=== PATIENT | female | born 1990 ===

== ENCOUNTER 2017-11-09 15:02 | Inpatient (IN) | payer BC ==
[2017-11-09] MEDS ORDERED: Tranexamic Acid 1,000 MG in Sodium Chloride 0.9% 100 ML IV PRN (15:45)
[2017-11-09] MEDS ORDERED: Sodium Chloride 0.9% 10 ML Syringe FLUSH PRN (15:45)
[2017-11-09] MEDS ORDERED: Nalbuphine 10 MG/1 ML Vial IVPUSH PRN (15:45)
[2017-11-09] MEDS ORDERED: Methylergonovine 0.2 MG/1 ML Amp IM PRN (15:45)
[2017-11-09] MEDS ORDERED: Misoprostol 200 MCG Tab PO PRN (15:45)
[2017-11-09] MEDS ORDERED: Sodium Chloride 0.9% 2.5 ML Syringe FLUSH PRN (15:45)
[2017-11-09] MEDS ORDERED: Carboprost Tromethamine 250 MCG/1 ML Amp IM PRN (15:45)
[2017-11-09] MEDS ORDERED: Oxytocin/0.9 % Sodium Chloride 30 UNIT/500 ML BAG IV SCH ×2 (15:45→20:15)
[2017-11-09] MEDS ORDERED: Lidocaine 1% 50 ML MDV INJECT PRN (15:45)
[2017-11-09] MEDS: Lactated Ringers 1,000 ML IV SCH ×2 (16:12→16:59)
--- NOTE | 2017-11-09 16:28 | PCM.LDHP ---
L&D History of Present Illness - General Date of Service: 11/09/17 Admit Problem/Dx: Patient Status Order with Admit Dx/Problem 11/09/17 15:07 Patient Status [ADT] Routine 11/09/17 15:45 Patient Status [ADT] Routine Admission Diagnosis/Problem Admission Diagnosis/Problem 11/09/17 16:22 26yo EDC 11/08/2017 40 1/7wks comes in active labor, )+, RI, GBS neg Source of Information: Patient History Limitations: Reports: No Limitations - History of Present Illness Improves with: Reports: None Worsens with: Reports: None Associated Symptoms: Reports: N - Related Data Allergies/Adverse Reactions: Allergies Allergy/AdvReac Type Severity Reaction Status Date / Time No Known Allergies Allergy Verified 11/09/17 15:06 Home Medications: Home Meds Vit No.124/Iron/FA [ Vitamin Tablet] 1 each PO DAILY 11/09/17 [ History] Past Medical History - Past Health History Medical/Surgical History: Denies Medical/Surgical History Social & Family History - Family History Family Medical History: Noncontributory - Tobacco Use Smoking Status *Q: Never Smoker Second Hand Smoke Exposure: No - Recreational Drug Use Recreational Drug Use: No H&P Review of Systems - Review of Systems: Review Of Systems: See Below General: Reports: No Symptoms HEENT: Reports: No Symptoms Pulmonary: Reports: No Symptoms Cardiovascular: Reports: No Symptoms Gastrointestinal: Reports: No Symptoms Genitourinary: Reports: No Symptoms Musculoskeletal: Reports: No Symptoms Skin: Reports: No Symptoms Psychiatric: Reports: No Symptoms Neurological: Reports: No Symptoms Hematologic/Lymphatic: Reports: No Symptoms Immunologic: Reports: No Symptoms L&D Exam - Exam Exam: See Below - Vital Signs Weight: 91.172 kg - OB Specific Contraction Intensity: Moderate to Strong Movement: Active Heart Tones: Present Heart Rate (FHR) Variability: Moderate (6-25 bmp) Presentation: Vertex - Orosco Score Orosco Score Cervix Position: Anterior Orosco Score Consistency: Soft Orosco Score Effacement: >80% Orosco Score Dilation: > 5 cm Orosco Score Infant's Station: -1 ,0 Orosco Score Total: 12 - Exam General: Alert, Oriented HEENT: Hearing Intact, Nares Patent Lungs: Clear to Auscultation, Normal Respiratory Effort Cardiovascular: Regular Rate, Regular Rhythm GI/Abdominal Exam: Soft, Non-Tender, No Distention, No Mass, Pelvis Stable Rectal Exam: Deferred Genitourinary: Normal external exam, Normal bimanual exam, Cervical dilitation Back Exam: Full Range of Motion Extremities: Normal Range of Motion, Non-Tender, No Pedal Edema, Normal Capillary Refill Skin: Warm, Dry, Intact Neurological: Reflexes Equal Bilateral, Normal Gait, Normal Speech, Normal Tone Psychiatric: Alert, Normal Affect, Normal Mood - Patient Data Lab Results Last 24 hrs: Laboratory Results - last 24 hr 11/09/17 Range/Units 15:55 WBC 18.26 H (4.0-11.0) K/uL RBC 4.55 (4.30-5.90) M/uL Hgb 13.2 (12.0-16.0) g/dL Hct 38.7 (36.0-46.0) % MCV 85.1 (80.0-98.0) fL MCH 29.0 (27.0-32.0) pg MCHC 34.1 (31.0-37.0) g/dL RDW Std Deviation 51.1 (28.0-62.0) fl RDW Coeff of Liset 17 H (11.0-15.0) % Plt Count 242 (150-400) K/uL MPV 10.70 (7.40-12.00) fL Nucleated RBC % 0.0 /100WBC Nucleated RBCs # 0 K/uL Result Diagrams: 11/09/17 15:55 - Problem List (1) Supervision of normal IUP (intrauterine ) in primigravida SNOMED Code(s): 44248815, 183934638, 440108179 ICD Code: Z34.00 - ENCNTR FOR SUPRVSN OF NORMAL FIRST , UNSP TRIMESTER Status: Acute Priority: High Current Visit: Yes Qualifiers: Trimester: third trimester Qualified Code(s): Z34.03 - Encounter for supervision of normal first , third trimester Problem List Initiated/Reviewed/Updated: Yes Orders Last 24hrs: Active Orders 24 hr Category Date Time Status Patient Status [ADT] Routine ADT 11/09/17 15:45 Active Heart Tones [RC] CONTINUOUS Care 11/09/17 15:45 Active Non Stress Test [RC] PER UNIT ROUTINE Care 11/09/17 15:07 Active Non Stress Test [RC] PER UNIT ROUTINE Care 11/09/17 15:45 Active May Shower [RC] ASDIRECTED Care 11/09/17 15:45 Active Notify Provider [RC] PRN Care 11/09/17 15:45 Active Up ad Yolanda [RC] ASDIRECTED Care 11/09/17 15:07 Active Vaginal Exam [RC] Click to Edit Care 11/09/17 15:07 Active Vital Signs [RC] PER UNIT ROUTINE Care 11/09/17 15:07 Active Vital Signs [RC] PER UNIT ROUTINE Care 11/09/17 15:45 Active Clear Liquid Diet [DIET] Diet 11/09/17 Dinner Active TYPE AND SCREEN [BBK] Routine Lab 11/09/17 15:55 Received Carboprost Tromethamine [Hemabate DS] Med 11/09/17 15:45 Active 250 mcg IM ASDIRECTED PRN Lactated Ringers [Ringers, Lactated] 1,000 ml Med 11/09/17 15:45 Active IV ASDIRECTED Lidocaine 1% [Xylocaine 1%] Med 11/09/17 15:45 Active 50 ml INJECT .ONCE PRN Methylergonovine [Methergine] Med 11/09/17 15:45 Active 0.2 mg IM ASDIRECTED PRN Misoprostol [Cytotec] Med 11/09/17 15:45 Active 200 mcg PO .ONCE PRN Nalbuphine [Nubain] Med 11/09/17 15:45 Active 10 mg IVPUSH Q1H PRN Oxytocin/0.9 % Sodium Chloride [Oxytocin 30 Unit/500 ML Med 11/09/17 15:45 Active -NS] 30 unit in 500 ml IV TITRATE Sodium Chloride 0.9% [Saline Flush] Med 11/09/17 15:45 Active 10 ml FLUSH ASDIRECTED PRN Sodium Chloride 0.9% [Saline Flush] Med 11/09/17 15:45 Active 2.5 ml FLUSH ASDIRECTED PRN Tranexamic Acid [Cyklokapron] 1,000 mg Med 11/09/17 15:45 Active Sodium Chloride 0.9% [Normal Saline] 100 ml IV ONETIME Scalp Electrode [WOMSER] Per Unit Routine Oth 11/09/17 15:45 Ordered Peripheral IV Insertion Adult [OM.PC] Routine Oth 11/09/17 15:45 Ordered Resuscitation Status Routine Resus Stat 11/09/17 15:06 Ordered Medication Orders Carboprost Tromethamine (Hemabate Ds) 250 mcg IM ASDIRECTED PRN PRN Reason: Post Hemorrhage Lactated Ringer's (Ringers, Lactated) 1,000 mls @ 150 mls/hr IV ASDIRECTED VITALY Last Admin: 11/09/17 16:12 Dose: 150 mls/hr Oxytocin/Sodium Chloride (Oxytocin 30 Unit/500 Ml-Ns) 30 unit in 500 mls @ 999 mls/hr IV TITRATE VITALY Tranexamic Acid 1,000 mg/ (Sodium Chloride) 110 mls @ 660 mls/hr IV ONETIME PRN PRN Reason: Bleeding Lidocaine HCl (Xylocaine 1%) 50 ml INJECT .ONCE PRN PRN Reason: Laceration repair Methylergonovine Maleate (Methergine) 0.2 mg IM ASDIRECTED PRN PRN Reason: Post Hemorrhage Misoprostol (Cytotec) 200 mcg PO .ONCE PRN PRN Reason: Post Hemorrhage Nalbuphine HCl (Nubain) 10 mg IVPUSH Q1H PRN PRN Reason: Pain (severe 7-10) Sodium Chloride (Saline Flush) 10 ml FLUSH ASDIRECTED PRN PRN Reason: Keep Vein Open Sodium Chloride (Saline Flush) 2.5 ml FLUSH ASDIRECTED PRN PRN Reason: Keep Vein Open Assessment/Plan Comment:: Labor A: 26yo EDC 11/08/2017 40 1/7wks comes in active labor, )+, RI, GBS neg, Hx of HSV P: Admit, Exam noted no HSV rash noted, epidural prn, anticipated , Dr Jim updated on pt status.
[2017-11-09] MEDS ORDERED: Ondansetron 4 MG/2 ML SDV IVPUSH PRN (16:29)
--- NOTE | 2017-11-09 17:05 | PCM.PREANE ---
Preanesthetic Assessment - Anesthesia/Transfusion/Family Hx Anesthesia History: No Prior Anesthesia Family History of Anesthesia Reaction: No Transfusion History: No Prior Transfusion(s) - Review of Systems General: No Symptoms Pulmonary: No Symptoms Cardiovascular: No Symptoms Gastrointestinal: No Symptoms Neurological: No Symptoms Other: Reports: None (Denies any bleeding or clotting problems) - Physical Assessment Height: 1.63 m Weight: 91.172 kg ASA Class: 2 Mental Status: Alert & Oriented x3 Airway Class: Mallampati = 2 Dentition: Reports: Normal Dentition ROM/Head Extension: Full - Lab Values: Laboratory Last Values WBC 18.26 K/uL (4.0-11.0) H 11/09/17 15:55 RBC 4.55 M/uL (4.30-5.90) 11/09/17 15:55 Hgb 13.2 g/dL (12.0-16.0) 11/09/17 15:55 Hct 38.7 % (36.0-46.0) 11/09/17 15:55 MCV 85.1 fL (80.0-98.0) 11/09/17 15:55 MCH 29.0 pg (27.0-32.0) 11/09/17 15:55 MCHC 34.1 g/dL (31.0-37.0) 11/09/17 15:55 RDW Std Deviation 51.1 fl (28.0-62.0) 11/09/17 15:55 RDW Coeff of Liset 17 % (11.0-15.0) H 11/09/17 15:55 Plt Count 242 K/uL (150-400) 11/09/17 15:55 MPV 10.70 fL (7.40-12.00) 11/09/17 15:55 Nucleated RBC % 0.0 /100WBC 11/09/17 15:55 Nucleated RBCs # 0 K/uL 11/09/17 15:55 - Allergies Allergies/Adverse Reactions: Allergies Allergy/AdvReac Type Severity Reaction Status Date / Time No Known Allergies Allergy Verified 11/09/17 15:06 - Acknowledgements Anesthesia Type Planned: Epidural Pt an Appropriate Candidate for the Planned Anesthesia: Yes Alternatives and Risks of Anesthesia Discussed w Pt/Guardian: Yes Pt/Guardian Understands and Agrees with Anesthesia Plan: Yes PreAnesthesia Questionnaire - Past Health History Medical/Surgical History: Denies Medical/Surgical History (Denies any medical problems) - SUBSTANCE USE Smoking Status *Q: Never Smoker Second Hand Smoke Exposure: No Recreational Drug Use History: No - HOME MEDS Home Medications: Home Meds Vit No.124/Iron/FA [ Vitamin Tablet] 1 each PO DAILY 11/09/17 [ History] - CURRENT (IN HOUSE) MEDS Current Meds: Current Medications Carboprost Tromethamine (Hemabate Ds) 250 mcg IM ASDIRECTED PRN PRN Reason: Post Hemorrhage Lactated Ringer's (Ringers, Lactated) 1,000 mls @ 150 mls/hr IV ASDIRECTED VITALY Last Admin: 11/09/17 16:59 Dose: 150 mls/hr Oxytocin/Sodium Chloride (Oxytocin 30 Unit/500 Ml-Ns) 30 unit in 500 mls @ 999 mls/hr IV TITRATE VTIALY Tranexamic Acid 1,000 mg/ (Sodium Chloride) 110 mls @ 660 mls/hr IV ONETIME PRN PRN Reason: Bleeding Lidocaine HCl (Xylocaine 1%) 50 ml INJECT .ONCE PRN PRN Reason: Laceration repair Methylergonovine Maleate (Methergine) 0.2 mg IM ASDIRECTED PRN PRN Reason: Post Hemorrhage Misoprostol (Cytotec) 200 mcg PO .ONCE PRN PRN Reason: Post Hemorrhage Nalbuphine HCl (Nubain) 10 mg IVPUSH Q1H PRN PRN Reason: Pain (severe 7-10) Ondansetron HCl (Zofran) 4 mg IVPUSH Q4H PRN PRN Reason: Nausea Sodium Chloride (Saline Flush) 10 ml FLUSH ASDIRECTED PRN PRN Reason: Keep Vein Open Sodium Chloride (Saline Flush) 2.5 ml FLUSH ASDIRECTED PRN PRN Reason: Keep Vein Open Discontinued Medications Fentanyl/Bupivacaine HCl (Ayombdar-Mwwgr-Xt 2 Mcg/Ml-0.125%) Confirm Administered Dose 100 mls @ as directed ALFREDO HERNÁNDEZ-MED ONE Stop: 11/09/17 16:28
[2017-11-10] MEDS ORDERED: Bupivacaine 0.5% 10 ML SDV ONE (02:17)
[2017-11-10] MEDS ORDERED: Morphine PF 1 MG/ML Amp ONE (02:26)
[2017-11-10] MEDS ORDERED: Ondansetron 4 MG/2 ML SDV ONE (02:29)
[2017-11-10] MEDS ORDERED: Oxytocin 10 Units/1 ML SDV ONE (02:29)
[2017-11-10] MEDS ORDERED: ceFAZolin/Dextrose,Iso-Osmotic 2 GM/50 ML Duplex Bag IV ONE (02:31)
[2017-11-10] MEDS ORDERED: Lanolin 100% Cream 7 GM Tube TOP PRN (03:35)
[2017-11-10] MEDS ORDERED: diphenhydrAMINE 50 MG/ML SDV IVPUSH PRN (03:35)
[2017-11-10] MEDS ORDERED: Acetaminophen/oxyCODONE 325-5 MG Tab PO PRN ×2 (03:35)
[2017-11-10] MEDS ORDERED: Bisacodyl 10 MG Supp RECTAL PRN (03:35)
[2017-11-10] MEDS ORDERED: Ondansetron 4 MG/2 ML SDV IVPUSH PRN (03:35)
[2017-11-10] MEDS ORDERED: Octyl 2-Cyanoacrylate 1 Tube ONE (03:35)
--- NOTE | 2017-11-10 03:39 | PCM.OPNOTE ---
- General Post-Op/Procedure Note Date of Surgery/Procedure: 11/10/17 Operative Procedure(s): Primary C/Section Pre Op Diagnosis: IUP term Failar to preogress Post-Op Diagnosis: Same Anesthesia Technique: Epidural Primary Surgeon: Amos Jim Administrative Medical Director: Maty Gresham EBL in mLs: 700 Complications: None Condition: Good
[2017-11-10] MEDS ORDERED: Lactated Ringers 1,000 ML IV SCH (03:45)
[2017-11-10] MEDS ORDERED: Nalbuphine 10 MG/1 ML Vial IVPUSH PRN (04:00)
[2017-11-10] MEDS ORDERED: fentaNYL 100 MCG/2 ML SDV IVPUSH PRN (04:00)
--- NOTE | 2017-11-10 04:02 | PCM.POSTAN ---
POST ANESTHESIA ASSESSMENT - MENTAL STATUS Mental Status: Alert, Oriented - RESPIRATORY Respiratory Status: Respiratory Rate WNL, Airway Patent, O2 Saturation Stable - CARDIOVASCULAR CV Status: Pulse Rate WNL, Blood Pressure Stable - GASTROINTESTINAL GI Status: No Symptoms - POST OP HYDRATION Hydration Status: Adequate & Stable
[2017-11-10] MEDS: Ketorolac 30 MG/ML SDV IVPUSH SCH ×4 (04:07→22:02)
--- NOTE | 2017-11-10 04:24 | OR ---
SURGEON: Amos Jim MD DATE OF PROCEDURE: 11/10/2017 PREOPERATIVE DIAGNOSES: 1. Intrauterine at term. 2. Failure to progress. PROCEDURE PERFORMED: Primary low transverse section. GRILL ATTENDANT: Maty Gresham CNM ANESTHESIA: Epidural, Dayanara Rich and Dr. Moreno. ESTIMATED BLOOD LOSS: 700 mL. COMPLICATIONS: None. SUPERVISOR FINISHING DEPARTMENT: Simran Branch M.D. FINDING: Male fetus. score reported to be 8 and 9. The weight is not available. INDICATION FOR SURGERY: This is a 26-year-old patient, primigravida, admitted in active labor. She is followed primarily by our nurse collaborative physician, and she is admitted at 4 cm, she progressed into 5 cm, and then she had epidural anesthesia for labor analgesia, and she had an artificial rupture of the membrane. The patient continued to progress. She became complete-complete and 0 to +1 station, and she pushed for 2 hours without any progress, and I was consulted to evaluate the patient, and when I evaluated the patient, she was complete-complete, vertex, and 0 to plus station. I attempted one small attempt of vacuum to do vacuum extraction, but it was unsuccessful, and it was felt at this time that it is safer for the patient to do primary low transverse section, so we proceeded to the section after consenting the patient. PROCEDURE IN DETAIL: The patient was brought to the OR, properly identified, and after adequate level of epidural anesthesia, with a [place] catheter in the bladder, the patient was prepped and draped in sterile fashion as usual. Low transverse Pfannenstiel skin incision done. Quique fascia and rectus fascia were opened in the direction of the incision. The 2 recti muscles were , and the peritoneal cavity was entered. Bladder flap was raised in the usual manner pushing the bladder away from the lower uterine segment and then low transverse uterine incision was done extending manually with the hand. Fetus was in a vertex position, delivered without any problem, and fetus cried immediately, handed to Dr. Branch who was present at the time of the section for resuscitation. The score later on reported to be 8 and 9. The placenta delivered spontaneous, complete, and intact and repair of the lower uterine segment was done with 2-0 Vicryl continuous interlocking in 2 layers. Reperitonealization done with 2-0 Vicryl continuous and then the peritoneal cavity evacuated completely from all blood and blood clot and closed with 3-0 Vicryl continuous. The rectus fascia was closed with #1 PDS double strand continuous and Quique fascia with 3-0 Vicryl continuous, and the skin closed with 3-0 Vicryl on a Vinod needle in a subcuticular fashion and Dermabond. Instrument and sponge count were correct. The patient tolerated the procedure well, went to recovery room in stable general condition. YOSELYN / ROMELIA /[id number]
[2017-11-10] MEDS: Docusate Sodium 100 MG Cap PO SCH ×2 (09:38→22:03)
--- NOTE | 2017-11-10 14:27 | PCM48HPAN ---
Post Anesthesia Note - EVALUATION WITHIN 48HRS OF ANESTHETIC Vital Signs in Normal Range: Yes Patient Participated in Evaluation: Yes Respiratory Function Stable: Yes Airway Patent: Yes Cardiovascular Function Stable: Yes Hydration Status Stable: Yes Pain Control Satisfactory: Yes Nausea and Vomiting Control Satisfactory: Yes Mental Status Recovered: Yes Resp Rate: 16 - COMMENTS/OBSERVATIONS Free Text/Narrative:: Denies any complaints and doing well.
[2017-11-11] MEDS: Ketorolac 30 MG/ML SDV IVPUSH SCH (04:00)
--- NOTE | 2017-11-11 08:56 | PCM.DCSUM1 ---
Discharge Summary - Hospital Course Free Text/Narrative:: Discharge home with if pain management effective. Follow up in 10 days for incision check and then in 6 weeks for post . Come sooner if needed. - Discharge Data Discharge Date: 11/11/17 Discharge Disposition: Admitted As Inpatient 66 Condition: Good - Discharge Diagnosis/Problem(s) (1) Supervision of normal IUP (intrauterine ) in primigravida SNOMED Code(s): 27172424, 420092132, 619785589 ICD Code: Z34.00 - ENCNTR FOR SUPRVSN OF NORMAL FIRST , UNSP TRIMESTER Status: Acute Priority: High Current Visit: Yes Qualifiers: Trimester: third trimester Qualified Code(s): Z34.03 - Encounter for supervision of normal first , third trimester (2) delivery with vacuum assistance, delivered, current hospitalization SNOMED Code(s): 702564197 ICD Code: O66.5 - ATTEMPTED APPLICATION OF VACUUM EXTRACTOR AND FORCEPS Status: Acute Priority: High Current Visit: Yes - Patient Summary/Data Operative Procedure(s) Performed: Primary C/Section - Patient Instructions Diet: Usual Diet as Tolerated Activity: As Tolerated, No Lifting Over 25 Pounds, No Strenuous Activities, Rest and Relax Today Driving: May Drive Today Showering/Bathing: May Shower Notify Provider of: Fever, Increased Pain, Swelling and Redness, Drainage, Nausea and/or Vomiting Other/Special Instructions: Discharge home with infant if pain management effective. Follow up in 10 days for incision check and then in 6 weeks for post . Come sooner if needed. - Discharge Plan Home Medications: Home Meds Vit No.124/Iron/FA [ Vitamin Tablet] 1 each PO DAILY 11/09/17 [ History] - General Info Date of Service: 11/11/17 Admission Dx/Problem (Free Text: Patient Status Order with Admit Dx/Problem 11/09/17 15:07 Patient Status [ADT] Routine 11/09/17 15:45 Patient Status [ADT] Routine Admission Diagnosis/Problem Admission Diagnosis/Problem 11/09/17 16:22 26yo EDC 11/08/2017 40 1/7wks comes in active labor, )+, RI, GBS neg Functional Status: Reports: Pain Controlled, Tolerating Diet, Ambulating, Urinating - Review of Systems General: Reports: No Symptoms HEENT: Reports: No Symptoms Pulmonary: Reports: No Symptoms Cardiovascular: Reports: No Symptoms Gastrointestinal: Reports: No Symptoms Genitourinary: Reports: No Symptoms Musculoskeletal: Reports: No Symptoms Skin: Reports: No Symptoms Neurological: Reports: No Symptoms Psychiatric: Reports: No Symptoms - Patient Data Vitals - Most Recent: Last Vital Signs Temp 36.4 C 11/11/17 08:04 Pulse 106 H 11/11/17 08:04 Resp 16 11/11/17 08:04 BP 114/59 L 11/11/17 08:04 Pulse Ox 98 11/11/17 08:04 Weight - Most Recent: 91.172 kg I&O - Last 24 hours: Intake & Output 11/10/17 11/11/17 11/11/17 22:59 06:59 14:59 Intake Total 1800 Output Total 2950 Balance -1150 Lab Results - Last 24 hrs: Laboratory Results - last 24 hr 11/11/17 Range/Units 04:50 Hgb 9.9 L (12.0-16.0) g/dL Hct 29.6 L (36.0-46.0) % Med Orders - Current: Current Medications Bisacodyl (Dulcolax) 10 mg RECTAL .ONCE PRN PRN Reason: Constipation Carboprost Tromethamine (Hemabate Ds) 250 mcg IM ASDIRECTED PRN PRN Reason: Post Hemorrhage Diphenhydramine HCl (Benadryl) 25 mg IVPUSH Q6H PRN PRN Reason: Itching or Nausea Docusate Sodium (Colace) 100 mg PO BID VITALY Last Admin: 11/10/17 22:03 Dose: 100 mg Emollient Ointment (Lansinoh Hpa) 0 gm TOP ASDIRECTED PRN PRN Reason: Sore Nipples Last Admin: 11/10/17 09:45 Dose: 7 gm Oxytocin/Sodium Chloride (Oxytocin 30 Unit/500 Ml-Ns) 30 unit in 500 mls @ 999 mls/hr IV TITRATE VITALY Tranexamic Acid 1,000 mg/ (Sodium Chloride) 110 mls @ 660 mls/hr IV ONETIME PRN PRN Reason: Bleeding Oxytocin/Sodium Chloride (Oxytocin 30 Unit/500 Ml-Ns) 30 unit in 500 mls @ 2 mls/hr IV TITRATE VITALY; 2 MUNITS/MIN PRN Reason: Protocol Last Infusion: 11/09/17 22:14 Dose: 6 munits/min, 6 mls/hr Lactated Ringer's (Ringers, Lactated) 1,000 mls @ 125 mls/hr IV ASDIRECTED COUNT INCLUDES THE [facility] Last Admin: 11/10/17 05:20 Dose: 125 mls/hr Ibuprofen (Motrin) 800 mg PO Q8H PRN PRN Reason: mild pain or fever Lidocaine HCl (Xylocaine 1%) 50 ml INJECT .ONCE PRN PRN Reason: Laceration repair Methylergonovine Maleate (Methergine) 0.2 mg IM ASDIRECTED PRN PRN Reason: Post Hemorrhage Misoprostol (Cytotec) 200 mcg PO .ONCE PRN PRN Reason: Post Hemorrhage Nalbuphine HCl (Nubain) 10 mg IVPUSH Q1H PRN PRN Reason: Pain (severe 7-10) Ondansetron HCl (Zofran) 4 mg IVPUSH Q4H PRN PRN Reason: Nausea/Vomiting Oxycodone/Acetaminophen (Percocet 325-5 Mg) 1 tab PO Q4H PRN PRN Reason: Pain (moderate 4-6) Oxycodone/Acetaminophen (Percocet 325-5 Mg) 2 tab PO Q4H PRN PRN Reason: Pain (moderate 4-6) Sodium Chloride (Saline Flush) 10 ml FLUSH ASDIRECTED PRN PRN Reason: Keep Vein Open Sodium Chloride (Saline Flush) 2.5 ml FLUSH ASDIRECTED PRN PRN Reason: Keep Vein Open Discontinued Medications Bupivacaine HCl (Sensorcaine-Mpf 0.5%) Confirm Administered Dose 20 ml .ROUTE .STK-MED ONE Stop: 11/10/17 02:18 Last Admin: 11/10/17 05:08 Dose: Not Given Cefazolin Sodium/Dextrose (Ancef) Confirm Administered Dose 2 gm IV .STK-MED ONE Stop: 11/10/17 02:32 Fentanyl (Sublimaze) 50 mcg IVPUSH Q5M PRN PRN Reason: Pain (severe 7-10) Stop: 11/11/17 04:01 Lactated Ringer's (Ringers, Lactated) 1,000 mls @ 150 mls/hr IV ASDIRECTED COUNT INCLUDES THE [facility] Last Admin: 11/09/17 16:59 Dose: 150 mls/hr Fentanyl/Bupivacaine HCl (Qujouzyb-Icbby-Sm 2 Mcg/Ml-0.125%) Confirm Administered Dose 100 mls @ as directed EP .STK-MED ONE Stop: 11/09/17 16:28 Last Admin: 11/10/17 05:08 Dose: Not Given Fentanyl/Bupivacaine HCl (Tqxjhnjd-Yvnaf-Np 2 Mcg/Ml-0.125%) Confirm Administered Dose 100 mls @ as directed EP .STK-MED ONE Stop: 11/10/17 00:48 Last Admin: 11/10/17 05:08 Dose: Not Given Ketorolac Tromethamine (Toradol) 30 mg IVPUSH Q6H VITALY Stop: 11/11/17 04:01 Last Admin: 11/11/17 04:00 Dose: 30 mg Morphine Sulfate (Duramorph Pf) Confirm Administered Dose 1 mg .ROUTE .STK-MED ONE Stop: 11/10/17 02:27 Nalbuphine HCl (Nubain) 2.5 mg IVPUSH Q3H PRN PRN Reason: Pruritis Stop: 11/11/17 04:01 Octyl Cyanoacrylate (Dermabond Advance) Confirm Administered Dose 1 applic .ROUTE .STK-MED ONE Stop: 11/10/17 03:36 Ondansetron HCl (Zofran) 4 mg IVPUSH Q4H PRN PRN Reason: Nausea Ondansetron HCl (Zofran) Confirm Administered Dose 4 mg .ROUTE .STK-MED ONE Stop: 11/10/17 02:30 Oxytocin (Pitocin) Confirm Administered Dose 20 unit .ROUTE .STK-MED ONE Stop: 11/10/17 02:30 - Exam General: Reports: Alert, Oriented, Cooperative, No Acute Distress Lungs: Reports: Clear to Auscultation, Normal Respiratory Effort Cardiovascular: Reports: Regular Rate, Regular Rhythm, No Murmurs GI/Abdominal Exam: Normal Bowel Sounds, Soft, No Distention (Female) Exam: Vaginal Bleeding Rectal (Female) Exam: Deferred Back Exam: Reports: Full Range of Motion Extremities: Normal Inspection, Normal Range of Motion, Non-Tender, No Pedal Edema, Normal Capillary Refill Skin: Reports: Warm, Dry, Intact Wound/Incisions: Reports: Healing Well, Dressing Dry and Intact Neurological: Reports: No New Focal Deficit, Normal Speech, Normal Tone Psy/Mental Status: Reports: Alert, Normal Affect, Normal Mood *Q Meaningful Use (DIS) - VTE *Q VTE Criteria *Q: - Stroke *Q Stroke Criteria *Q: - AMI *Q AMI Criteria *Q:
[2017-11-11] MEDS ORDERED: Ibuprofen 800 MG Tab PO PRN (10:00)
[2017-11-11] MEDS: Docusate Sodium 100 MG Cap PO SCH (16:31)
== END 2017-11-11 19:05 | disposition home or self-care (01) | DRG 540 ==
LOC: MW.OBCHECK 15:02 → MW.OB 15:03 → MW.OBCHECK 15:45 → MW.OB 11-10 03:00 → OBSVTOIN 11-10 03:16
PROVIDERS: ADMIT Obstetrics & Gynecology; ATTEND Advanced Practice Midwife
PROC: 10D00Z1 Extraction of Products of Conception, Low, Open Approach (ICD-10-PCS; principal; 2017-11-10)
DX: O32.4XX0 Maternal care for high head at term, not applicable or unspecified (principal); Z3A.40 40 weeks gestation of pregnancy; Z37.0 Single live birth
CPT/HCPCS: 01967; 01968; 36415; 51702; 59025; 85014; 85018; 85027; 86850; 86900; 86901; A9270-GY; J0690; J1885; J2274; J2405; J2590; J7120